=== PATIENT | male | born 1995 | race Caucasian/White ===

== ENCOUNTER 2018-07-27 10:32 | Emergency (ER) | payer SELFPAY ==
[2018-07-27] MEDS ORDERED: IPRATROPIUM/ALBUTEROL 0.5-2.5 MG/3 ML AMPUL NEB ONE (11:31)
[2018-07-27] MEDS ORDERED: PREDNISONE 20 MG TABLET PO ONE (11:32)
[2018-07-27] MEDS ORDERED: ALBUTEROL SULFATE HFA (90 MCG/PUFF) 8 GM MDI (1 MDI/ER DISP) IH ONE (11:32)
--- NOTE | 2018-07-27 11:50 | ER Document Report ---
HPI - HPI Time Seen by Provider: 07/27/18 11:20 Pain Level: 3 Notes: Patient is a 23-year-old male with history of asthma presenting to the emergency department with complaints of cough and wheezing. Patient states symptoms started yesterday. She denies any fevers. Patient states that his cough is productive. Patient does not have any asthma medications at home. - CONSTITUTIONAL Constitutional: DENIES: Fever, Chills - RESPIRATORY Respiratory: REPORTS: Coughing Past Medical History - General Information source: Patient - Social History Smoking Status: Current Every Day Smoker Frequency of alcohol use: None Drug Abuse: None Family History: Reviewed & Not Pertinent Patient has suicidal ideation: No Patient has homicidal ideation: No Pulmonary Medical History: Reports: Hx Asthma Renal/ Medical History: Denies: Hx Peritoneal Dialysis Past Surgical History: Reports: Hx Tonsillectomy Vertical Provider Document - CONSTITUTIONAL Notes: PHYSICAL EXAMINATION: GENERAL: Well-appearing, well-nourished and in no acute distress. HEAD: Atraumatic, normocephalic. EYES: Pupils equal round extraocular movements intact, conjunctiva are normal. ENT: Nares patent NECK: Normal range of motion LUNGS: Inspiratory and expiratory wheezes noted throughout, mildly increased work of breathing. Musculoskeletal: Normal range of motion NEUROLOGICAL: Normal speech, normal gait. PSYCH: Normal mood, normal affect. SKIN: Warm, Dry, normal turgor, no rashes or lesions noted. - INFECTION CONTROL TRAVEL OUTSIDE OF THE [place] IN LAST 30 DAYS: No Course - Re-evaluation Re-evalutation: 07/27/18 11:50 Patient will be given breathing treatments and prednisone here in the emergency department and will be reevaluated. If his wheezing improves he will be discharged home. Patient's wheezing improved significantly after breathing treatments. Patient will be sent home with an albuterol inhaler and steroids for the next 4 days starting tomorrow. Patient given strict ED return precautions and patient verbalizes understanding of same. - Vital Signs Vital signs: Temp Pulse Resp BP Pulse Ox 98.3 F 95 16 111/75 92 07/27/18 10:45 07/27/18 10:45 07/27/18 10:45 07/27/18 10:45 07/27/18 10:45 Discharge - Discharge Clinical Impression: Acute asthma exacerbation Qualifiers: Asthma severity: moderate Asthma persistence: unspecified Qualified Code(s): J45.901 - Unspecified asthma with (acute) exacerbation Condition: Stable Disposition: HOME, SELF-CARE Additional Instructions: Asthma You have been diagnosed as having asthma. This is a condition where there is episodic tightness in the bronchial tubes. Allergies, infections, and polluted or cold air may be contributing factors. Emergency treatment of a severe asthma attack may include adrenaline shots, or bronchodilator aerosol. You may feel lightheaded, have a decreased exercise tolerance and a rapid pulse for an hour or two. Rest and get plenty of fluids. Home treatment of asthma requires bronchodilator drugs. These can be administered by injection, inhalation, or by mouth. Antibiotics and corticosteroids may be required for some patients. You should avoid chemical fumes, dusts, pollens, and exercising in very cold or dry air. If you smoke, stop!! If you develop a fever, increased wheezing, chest pain, or severe shortness of breath, you should contact the doctor immediately Prescriptions: RX: Prednisone [Deltasone 20 mg Tablet] 3 tab PO DAILY 5 Days #12 tablet Forms: Return to Work
[2018-07-27 12:48] VITALS: BP 113/69
== END 2018-07-27 12:48 | disposition home or self-care (01) ==
LOC: ER 10:32
DX: J45.901 Unspecified asthma with (acute) exacerbation (principal); R05 Cough; F17.200 Nicotine dependence, unspecified, uncomplicated
CPT/HCPCS: 94640; 99283; J7512; J3490; J7620

== ENCOUNTER 2018-07-28 14:22 | Emergency (ER) | payer SELFPAY ==
[2018-07-28] MEDS ORDERED: KETOROLAC TROMETHAMINE 60 MG/2 ML SDV IM ONE (15:51)
[2018-07-28] MEDS ORDERED: PHENAZOPYRIDINE HCL 100 MG TABLET PO ONE (15:51)
--- NOTE | 2018-07-28 15:54 | ER Document Report ---
Addendum entered and electronically signed by DONI PATRICIO NP 07/28/18 19:10: Past Medical History - General Information source: Patient - Social History Smoking Status: Current Every Day Smoker Cigarette use (# per day): Yes Smoking Education Provided: Yes Frequency of alcohol use: Social Drug Abuse: None Lives with: Family Family History: Reviewed & Not Pertinent Patient has suicidal ideation: No Patient has homicidal ideation: No - Past Medical History Cardiac Medical History: Reports: None Pulmonary Medical History: Reports: Hx Asthma EENT Medical History: Reports: None Neurological Medical History: Reports: None Endocrine Medical History: Reports: None Renal/ Medical History: Reports: Hx Kidney Stones Malignancy Medical History: Reports None GI Medical History: Reports: None Musculoskeletal Medical History: Reports None Skin Medical History: Reports None Psychiatric Medical History: Reports: None Traumatic Medical History: Reports: None Infectious Medical History: Reports: None Surgical Hx: Negative Past Surgical History: Reports: None, Hx Tonsillectomy Review of Systems - Review of Systems Constitutional: No symptoms reported EENT: No symptoms reported Cardiovascular: No symptoms reported Respiratory: No symptoms reported Gastrointestinal: No symptoms reported Genitourinary: Burning - pain, Flank pain, Hematuria, Other - Suprapubic Male Genitourinary: No symptoms reported Musculoskeletal: No symptoms reported Skin: No symptoms reported Hematologic/Lymphatic: No symptoms reported Neurological/Psychological: No symptoms reported -: Yes All other systems reviewed and negative Physical Exam - Vital signs Vitals: Temp Pulse Resp BP Pulse Ox 97.6 F 68 14 129/79 H 98 07/28/18 15:19 07/28/18 15:19 07/28/18 15:19 07/28/18 15:19 07/28/18 15:19 Interpretation: Normal - General General appearance: Appears well, Alert - HEENT Head: Normocephalic, Atraumatic Eyes: Normal Pupils: PERRL - Respiratory Respiratory status: No respiratory distress Chest status: Nontender Breath sounds: Normal Chest palpation: Normal - Cardiovascular Rhythm: Regular Heart sounds: Normal auscultation Murmur: No - Abdominal Inspection: Normal Distension: No distension Bowel sounds: Normal Tenderness: Nontender. No: Tender - States pain is much better after getting the Pyridium and Toradol Organomegaly: No organomegaly - Back Back: Normal, Nontender - Extremities General upper extremity: Normal inspection, Nontender, Normal color, Normal ROM, Normal temperature General lower extremity: Normal inspection, Nontender, Normal color, Normal ROM, Normal temperature, Normal weight bearing. No: Gris's sign - Neurological Neuro grossly intact: Yes Cognition: Normal Orientation: AAOx4 Antonella Coma Scale Eye Opening: Spontaneous Antonella Coma Scale Verbal: Oriented Antonella Coma Scale Motor: Obeys Commands Antonella Coma Scale Total: 15 Speech: Normal Motor strength normal: LUE, RUE, LLE, RLE Sensory: Normal - Psychological Associated symptoms: Normal affect, Normal mood - Skin Skin Temperature: Warm Skin Moisture: Dry Skin Color: Normal Course - Re-evaluation Re-evalutation: 07/28/18 19:09 Discussed urine results with patient as well as abdominal x-ray. I have given the patient a copy of the urine results and the x-ray. He has a 4 mm stone in the right pole of the kidney. He does not have any stone obstructing his ureters or his bladder. He has no hydronephrosis or hydroureter. There is no signs of urinary tract infection. He has been discharged home with a prescription for nausea medicine and Pyridium. He is to follow-up with his urologist as scheduled. - Vital Signs Vital signs: Temp Pulse Resp BP Pulse Ox 97.6 F 68 14 129/79 H 98 07/28/18 15:19 07/28/18 15:19 07/28/18 15:19 07/28/18 15:19 07/28/18 15:19 - Laboratory Laboratory results interpreted by me: 07/28/18 15:50 Urine Blood MODERATE H - Diagnostic Test Radiology reviewed: Image reviewed, Reports reviewed Discharge - Discharge Clinical Impression: Suprapubic abdominal pain, Kidney stone on right side Condition: Stable Disposition: HOME, SELF-CARE Additional Instructions: Kidney Stone You have a 4 mm kidney stone to the lower pole of the right kidney. These stones are usually due to increased calcium or uric acid concentrations in your urine. Stones within the kidney itself are not painful. The pain occurs as the stone leaves the kidney to pass down the long tube, called the ureter, leading to the bladder. If the stone is small, it will usually pass by itself. Most patients can pass the stone at home. You will usually receive medications for pain such as ibuprofen, nausea or vomiting, and sometimes a medication to assist in passing the kidney stone. Drink three or four quarts of fluids per day. Return if pain or vomiting become severe, if you develop a high fever, if you are unable to pass your urine, or if other unusual symptoms occur. Ibuprofen Ibuprofen is an excellent, safe drug for pain control. In addition, it has potent antiinflammatory effects which are beneficial, especially in the treatment of injuries, arthritis, or tendonitis. It's best to take ibuprofen with food. Persons with ulcer disease or allergy to aspirin should notify their physician of this before taking ibuprofen. Take the medication exactly as prescribed. Don't take additional doses unless instructed to do so by your doctor. If you develop wheezing, shortness of breath, hives, faintness, stomach pain, vomiting, or dark black stools, return for re-evaluation at once. Antinausea Medication You have been given a medication to suppress nausea and vomiting. This type of medication can be given as a shot, pill, or suppository. It will usually last for many hours. Pills and shots usually last six to eight hours, suppositories last about 12 hours. For the typical illness, only one or two doses of the medication may be necessary. Mild lightheadedness may occur. This type of medicine can cause drowsiness. Do not drive or operate dangerous machinery while under its influence. Do not mix with alcohol. See your doctor at once if you have muscle spasms or tightness, or uncontrollable motions (particularly of the neck, mouth, or jaw). Persistent vomiting or severe lightheadedness should also be evaluated by the physician. URINARY ANESTHETIC AGENT: You have been given a medication (Pyridium) for urinary tract discomfort. This medicine numbs the lining of the bladder and urethra, resulting in less pain, burning, and urgency. You may take it as needed, according to instructions. When the symptoms resolve, you can stop this medication (be sure to continue any other medications the doctor has given you). This medicine turns the urine a dark orange. It may stain underwear. Occasionally, it can cause nausea. Return for evaluation if there are any unexpected effects, such as itching, hives, or shortness of breath. Keep your appointment with your urologist as scheduled FOLLOW-UP CARE: If you have been referred to a physician for follow-up care, call the physicians office for an appointment as you were instructed or within the next two days. If you experience worsening or a significant change in your symptoms, notify the physician immediately or return to the Emergency Department at any time for re-evaluation. Prescriptions: Phenazopyridine HCl [Pyridium 100 Mg Tablet] 100 mg PO Q8HP PRN #14 tablet PRN Reason: Promethazine HCl [Phenergan 25 mg Tablet] 25 mg PO Q6H PRN #15 tablet PRN Reason: Forms: Elevated Blood Pressure, Return to Work Original Note: ED Medical Screen (RME) - General Chief Complaint: Flank Pain Stated Complaint: FLANK PAIN Time Seen by Provider: 07/28/18 15:50 Mode of Arrival: Ambulatory Information source: Patient Notes: 23-year-old male presented to ED for complaint of kidney stone with severe suprapubic pain. He states he was diagnosed with a kidney stone about a month ago at [facility]. He states he was set up with an appointment with the urologist which is about another month out. He states they gave him a prescription for Flomax oxycodone and Pyridium which she is out of all of these now. He states he took his last Pyridium and pain medicine yesterday. He states he was here yesterday for some shortness of breath but not the kidney stone. He also has a history of asthma. He states that his kidney stone is 10 mm x 8 mm and they decided they did not want to do a stent or remove it because of his age. He states his today he is started urinating blood and became concerned and came to the emergency room. I have greeted and performed a rapid initial assessment of this patient. A comprehensive ED assessment and evaluation of the patient, analysis of test results and completion of medical decision making process will be conducted by an additional ED providers. TRAVEL OUTSIDE OF THE [place] IN LAST 30 DAYS: No - Related Data Allergies/Adverse Reactions: Penicillins Allergy (Verified 07/28/18 15:15) Past Medical History Pulmonary Medical History: Reports: Hx Asthma Renal/ Medical History: Denies: Hx Peritoneal Dialysis Past Surgical History: Reports: Hx Tonsillectomy Physical Exam - Vital signs Vitals: Temp Pulse Resp BP Pulse Ox 97.6 F 68 14 129/79 H 98 07/28/18 15:19 07/28/18 15:19 07/28/18 15:19 07/28/18 15:19 07/28/18 15:19 Course - Vital Signs Vital signs: Temp Pulse Resp BP Pulse Ox 97.6 F 68 14 129/79 H 98 07/28/18 15:19 07/28/18 15:19 07/28/18 15:19 07/28/18 15:19 07/28/18 15:19
[2018-07-28 16:22] LABS: APPEARANCE,URINE CLEAR; BILIRUBIN,URINE NEGATIVE (NEGATIVE); COLOR,URINE YELLOW; GLUCOSE, URINE NEGATIVE (NEGATIVE); KETONES,URINE NEGATIVE (NEGATIVE); LEUKOCYTE ESTERASE,URINE NEGATIVE (NEGATIVE); NITRITE,URINE NEGATIVE (NEGATIVE); PROTEIN,URINE NEGATIVE (NEGATIVE); URINE SPECIFIC GRAVITY 1.002; UROBILINOGEN,URINE NEGATIVE mg/dL (<2.0)
--- NOTE | 2018-07-28 17:06 | RADIOLOGY REPORT (SQ) ---
EXAM DESCRIPTION: KUB/ABDOMEN (SINGLE VIEW) COMPLETED DATE/TIME: 07/28/2018 4:56 pm REASON FOR STUDY: Suprapubic pain diagnosed kidney stone a month ago COMPARISON: None. NUMBER OF VIEWS: One view. TECHNIQUE: Supine radiographic image of the abdomen acquired. LIMITATIONS: None. FINDINGS: BOWEL GAS PATTERN: Normal bowel gas pattern. No dilated loops. CALCIFICATIONS: 4 mm calcified density overlying the lower pole right kidney. No ureteral calculi ar e identified. SOFT TISSUES: No gross mass or suggestion of organomegaly. HARDWARE: None. BONES: No bone lesions or fracture. OTHER: No other significant finding. IMPRESSION: Right renal calculus. Reading location - IP/workstation name: [email or web address]
[2018-07-28 19:02] VITALS: BP 119/78
== END 2018-07-28 19:16 | disposition home or self-care (01) ==
LOC: ER 14:22
DX: N20.0 Calculus of kidney (principal); R10.2 Pelvic and perineal pain; R30.0 Dysuria; R31.9 Hematuria, unspecified; F17.210 Nicotine dependence, cigarettes, uncomplicated; Z87.442 Personal history of urinary calculi
CPT/HCPCS: 99284; 96372; 87086; 81001; 74018; J1885; J3490